=== PATIENT | female | born 2000 | race Caucasian/White ===

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

== ENCOUNTER 2021-02-04 02:50 | Emergency (ER) | payer SELFPAY ==
[2021-02-04 02:50] VITALS: BP 115/65; PULSE 101; RESP 18; TEMP 36.7; O2SAT 99; BMI 21.4
--- NOTE | 2021-02-04 03:23 | EDS_ITS ---
HPI HPI - GI History of Present Illness Chief Complaint: Abd Pain Detail of Chief Complaint: Abdominal pain for 3 days Informant: patient Abdominal Pain/Flank Pain Current Severity: 6/10 Nausea/Vomiting/Emesis GI Symptom: Positive for Nausea Associated Symptoms Associated Symptoms: Negative for Dysuria LMP: 1 month ago Narrative Narrative: Patient presents with abdominal pain for the last 3 days. Patient states that the pain is been continuous. Today she was at work and felt somewhat lightheaded and became concerned and comes to the emergency department for evaluation. Patient states that about a week ago she took a home test and was positive. Patient denies vaginal bleeding. She denies dysuria. She denies fever. She denies blood in her stool or black tarry stools. [facility] Medical History (Updated 02/04/21 @ 05:[address] Madyson Deluca, ) Anxiety Home Medications vit,[id number] [Prenatabs FA] 1 tab PO DAILY 06/15/17 [History Last Taken 11/02/17 22:00 1 tab] Allergy/AdvReac Type Severity Reaction Status Date / Time cephalexin [From Keflex] Allergy Rash Verified 01/31/18 16:41 sulfamethoxazole Allergy Rash Verified 01/31/18 16:41 [From Bactrim] trimethoprim [From Bactrim] Allergy Rash Verified 01/31/18 16:41 Social History Smoking Status: Never smoker ROS [facility] ED Constitutional Constitutional ED: Reports systems reviewed and no addt'l complaints, except as documented; Denies body ache(s), change in weight or chills Eyes Eyes: Denies acute decrease in peripheral vision, change in vision, double vision or loss of vision ENT ENT ED: Reports none; Denies ear pain, lip swelling, loss taste/smell, neck pain, otalgia or sore throat Cardiovascular Cardiovascular: Reports none; Denies abdominal pain, chest pain with activity, leg edema, lightheadedness, palpitations, rapid heart rate or syncope Respiratory/Chest Respiratory/Chest: Reports none; Denies change in mental status, dry cough, dyspnea, hemoptysis, shortness of breath at rest or shortness of breath with exertion Gastrointestinal Gastrointestinal: Reports none, abdominal pain and nausea; Denies change in stool character, diarrhea, hematemesis, hematochezia, melena, rectal bleeding or vomiting Genitourinary Genitourinary ED: Reports none; Denies abdominal discomfort, anuria, dysuria, genital pain, hematuria or polyuria Musculoskeletal Musculoskeletal: Reports none; Denies arthralgias, back pain, difficulty walking, extremity pain, muscle weakness or myalgias Integumentary Reports none; Denies abscess or rash Neurologic Neurologic: Reports none; Denies abnormal gait, confusion, focal weakness, frequent falls, headache(s), loss of vision, numbness, paresthesias, radicular pain, vertigo or weakness Psychiatric Psychiatric: Reports systems reviewed and no addt'l complaints, except as documented and none; Denies behavioral changes, confusion, difficulty benigno ntrating, hallucinations, suicidal ideation, tactile hallucinations or visual hallucinations Endocrine Endocrinology: Denies none, cold intolerance, excessive sweating, fatigue or heat intolerance Hematologic/Lymphatic Hematologic/Lymphatic: Reports none; Denies anemia, easy bleeding or easy bruising Allergic/Immunologic Allergic/Immunologic ED: Denies as per HPI, none, lip swelling, mouth swelling, throat swelling, tongue swelling or hives EXAM Physical Exam Const Vital Signs: 02/04/21 02:50 Temperature 98.1 F Temperature Source Oral Pulse Rate 101 H Respiratory Rate 18 Blood Pressure 115/65 Blood Pressure Mean 81 Pulse Ox 99 Oxygen Delivery Method Room Air Positive well nourished and well developed General Appearance ED: well developed and NAD HEENT Reports TM's clear and moist mucous membranes normocephalic and atraumatic; Negative for trauma or tenderness Tympanic Membrane ED: Yes TM's clear Eyes PERRL and EOMs intact bilaterally General Eye ED: Negative for pale conjunctiva or scleral icterus Neck no lymphadenopathy, supple and no JVD General: Negative for tenderness Chest Wall inspection of chest normal and palpation of chest normal Chest: Negative for tenderness Resp normal respiratory effort and clear to auscultation bilaterally Effort and Inspection: Negative for respiratory distress or pain with movement Auscultation: Negative for rhonchi, wheezes or diminished lung sounds Cardio regular rate, regular rhythm, S1 normal heart sound, S2 normal heart sound and no murmurs Peripheral Pulses: pulses 2+ throughout GI normal to inspection, nondistended, normoactive bowel sounds, soft to palpation, non-distended and no masses; Negative for non-tender Palpation: tender LLQ, RLQ and suprapubic Back/Spine no CVA tenderness and no thoracic nor lumbar tenderness Extremity normal to inspection General Extremety ED: Negative for edema General Extremity: Negative for edema Neuro oriented x3, CN's II-XII intact bilaterally, no sensory deficits noted and gait normal Sensorium / Orientation: awake, alert, oriented to person, oriented to place and oriented to time Motor Exam: strength 5/5 throughout and strength abnormal Psych mental status grossly normal Skin no rashes or lesions noted and no wounds MDM MDM MDM Narrative Medical decision making narrative: Patient is not and has a normal work-up in the emergency department. At this point etiology of her pain is unclear. Patient advised use ibuprofen or Tylenol for discomfort. She will be given referral to primary care physician for follow-up in 3 to 5 days. She is advised to return if worsening pain, fever, vomiting, or condition should worsen anyway. Lab Data Attestation: I reviewed the patient's lab results. Labs: Laboratory Results - last 24 hr 02/04/21 02/04/21 02/04/21 03:00 03:00 03:00 WBC 5.6 RBC 4.61 Hgb 12.3 Hct 38.5 MCV 83.5 MCH 26.7 L MCHC 31.9 L RDW Std Deviation 38.1 RDW Coeff of Chuy 12.6 Plt Count 285 MPV 9.1 Immature Gran % (Auto) 0.200 Neut % (Auto) 49.6 Lymph % (Auto) 32.7 [place] % (Auto) 14.3 H Eos % (Auto) 2.7 Baso % (Auto) 0.5 Absolute Neuts (auto) 2.8 Absolute Lymphs (auto) 1.83 Nucleated RBC % 0 Sodium 141 Potassium 3.6 Chloride 107 Carbon Dioxide 28.0 Anion Gap 6 BUN 13 Creatinine 0.71 Estim Creat Clear Calc 90.03 Est GFR (MDRD) Af Amer 133 Est GFR (MDRD) Non-Af 110 BUN/Creatinine Ratio 18.3 Glucose 93 Calcium 8.5 Total Bilirubin 0.30 AST 18 ALT 19 Alkaline Phosphatase 74 Total Protein 7.1 Albumin 4.1 Globulin 3.0 Albumin/Globulin Ratio 1.4 Serum , Qual NEGATIVE Urine Color Urine Clarity Urine pH Ur Specific [place] Urine Protein Urine Glucose (UA) Urine Ketones Urine Occult Blood Urine Nitrite Urine Bilirubin Urine Urobilinogen Ur Leukocyte Esterase Urine RBC Urine WBC Ur Squamous Epith Cells Urine Bacteria Urine Mucus 05/25/21 04:50 WBC RBC Hgb Hct MCV MCH MCHC RDW Std Deviation RDW Coeff of [place] Plt Count MPV Immature Gran % (Auto) Neut % (Auto) Lymph % (Auto) [place] % (Auto) Eos % (Auto) Baso % (Auto) Absolute Neuts (auto) Absolute Lymphs (auto) Nucleated RBC % Sodium Potassium Chloride Carbon Dioxide Anion Gap BUN Creatinine Estim Creat Clear Calc Est GFR (MDRD) Af Amer Est GFR (MDRD) Non-Af BUN/Creatinine Ratio Glucose Calcium Total Bilirubin AST ALT Alkaline Phosphatase Total Protein Albumin Globulin Albumin/Globulin Ratio Serum , Qual Urine Color Yellow Urine Clarity Clear Urine pH 7.0 Ur Specific [place] 1.005 Urine Protein Negative Urine Glucose (UA) Normal Urine Ketones Negative Urine Occult Blood Negative Urine Nitrite Negative Urine Bilirubin Negative Urine Urobilinogen Normal Ur Leukocyte Esterase Negative Urine RBC 0 SEEN Urine WBC 0 SEEN Ur Squamous Epith Cells 0 SEEN Urine Bacteria 0 SEEN Urine Mucus 0 SEEN Discharge Plan Triage Chief Complaint: Abd Pain ED Provider: Madyson Deluca Dx/Rx/DC Orders Clinical Impression: Abdominal pain Instructions: ED Abdominal Pain Unkn Cause Fem Prescriptions: No Action Prenatabs FA 1 TABLET tablet 1 tab PO DAILY RF: 0 Primary Care Provider: Care Physician,No Primary Referrals: Kathy Cole MD [STAFF PHYSICIAN] - 3-5 Days Care Physician,No Primary [Primary Care Provider] - Disposition Disposition: Home, self care
[2021-02-04 03:29] LABS: Absolute Lymphocyte Count 1.83 X10^3/uL (0.83-4.51); Absolute Neutrophil Count 2.8 X10^3/uL (2.0-7.7); Basophil# 0.03 X10^3/uL; Basophil% 0.5 % (0-1); Eosinophil# 0.15 X10^3/uL; Eosinophils% 2.7 % (0-5); Hematocrit 38.5 % (37-47); Hemoglobin 12.3 g/dL (12.0-15.0); Lymphocyte # 1.83 X10^3/ul (0.83-4.51); Lymphocyte % 32.7 % (19-41); Mean Corp Hgb Conc 31.9 g/dL (32-36); Mean Corpuscular Hgb 26.7 pg (27.0-32.0); Mean Corpuscular Volume 83.5 fL (81-99); Mean Platelet Vol. 9.1 fl (6.2-12.0); Monocyte% 14.3 % (0-10); NRBC Flagged by Analyzer 0 % (0-5); Neutrophil # 2.77 X10^3/uL (2.7-7.7); Neutrophil % 49.6 % (47-70); Platelet Count 285 K/mm3 (150-450); RBC Distribution Width CV 12.6 % (11.6-14.6); RBC Distribution Width SD 38.1 fl (35.1-43.9); Red Blood Count 4.61 M/mm3 (4.2-5.4); White Blood Count 5.6 K/mm3 (4.4-11.0)
[2021-02-04 03:37] LABS: Internal QC Validated? YES +Cl - CLEAR BKGD; Pregnancy, Serum, hCG Quali. NEGATIVE Negative
[2021-02-04 03:47] LABS: ALB/GLOB Ratio 1.4 RATIO (0.9-2.4); AST(SGOT) 18 U/L (15-37); Alanine Aminotransfer ALT/SGPT 19 U/L (13-56); Albumin, Serum 4.1 g/dL (3.2-5.0); Alkaline Phosphatase 74 U/L (45-117); Anion Gap 6 (5-15); BUN 13 mg/dL (7-18); BUN/Creat Ratio 18.3 RATIO (10-20); Calcium,Total 8.5 mg/dL (8.5-10.1); Chloride 107 mmol/L (98-107); Creatinine, Serum 0.71 mg/dL (0.55-1.02); EST Glomerular Filtration Rate 110 mL/min (>60); Est Glom Filt Rate - Afr Amer 133 mL/min (>60); Estimated Creatinine Clearance 90.03 ml/min; Glucose 93 mg/dL (74-106); Potassium 3.6 mmol/L (3.5-5.1); Protein, Total 7.1 g/dL (6.4-8.2); Sodium Level 141 mmol/L (136-145)
--- NOTE | 2021-02-04 04:11 | CT_ITS ---
STUDY: CT ABDOMEN AND PELVIS WITHOUT CONTRAST REASON FOR EXAM: Female, 20 years old. abdominal pain-lt side with nausea RADIATION DOSAGE (If Supplied By Facility): CTDIvol = ( 6.04 ) mGy, DLP = ( 277.84 ) mGycm TECHNIQUE: Transaxial images were obtained from the dome of the diaphragm to the symphysis pubis without oral contrast, and without intravenous contrast. Sagittal and coronal images were reconstructed. Individualized dose optimization techniques were used for this CT. COMPARISON: None. FINDINGS: The visualized lung bases are unremarkable. The visualized portions of the heart are within normal limits. Normal liver. Normal gallbladder and extrahepatic biliary system. Normal spleen. Normal pancreas. Normal bilateral adrenal glands. Normal right kidney. Normal left kidney. Normal visualized stomach. Normal small intestine. Normal colon. Significant diffuse constipation. The appendix is visualized and appears normal. Normal abdominal aorta. Normal inferior vena cava. Normal retroperitoneum. Normal urinary bladder. Unremarkable uterus Normal abdominal wall. Normal osseous structures. CT/Abdomen/Pelvis without Cont IMPRESSION: Moderate constipation with unremarkable appendix Electronically Signed: Keith Bowser DO at 4:52 EDT Tel , Service support ,
[2021-02-04 04:54] LABS: Bacteria 0 SEEN /hpf (None Seen); Color, Urine Yellow (Yellow); Glucose, Dipstick Normal (Normal); Ketone-Dipstick Negative (Negative); Leukocyte Esterase-Dipstick Negative /ul (Negative); Mucous, Urine 0 SEEN /hpf (<or=2+); Nitrite-Dipstick Negative (Negative); Occult Blood-Urine Negative /ul (Negative); Protein-Dipstick Negative (Negative); Red Blood Cells-Urine 0 SEEN /hpf (0-5); Specific Gravity, Urine 1.005 (1.002-1.030); Squamous Epithelial Cells - UA 0 SEEN /hpf (5-10); Urine Bilirubin Dipstick Negative (Negative); Urine Clarity Clear (Clear); Urine Urobilinogen Normal (Normal); White Blood Cells 0 SEEN /hpf (0-5)
[2021-02-04 05:40] VITALS: BP 99/67; PULSE 76; RESP 16; O2SAT 100
== END 2021-02-04 05:40 | disposition home or self-care (01) ==
PROVIDERS: Emergency Provider Emergency Medicine
DX: R10.9 Unspecified abdominal pain (principal); R11.0 Nausea; R42 Dizziness and giddiness
CPT/HCPCS: 74176; 80053; 81001; 84703; 85025; 99283

== ENCOUNTER → 2021-04-09 | Outpatient (CLI) | payer OTHER, SELFPAY ==
[2021-04-12 03:07] LABS: Chlamydia By Nucleic Acid AMP Negative (Negative)
[2021-04-12 13:05] LABS: Gonococcus By Nucleic Acid AMP Negative (Negative)
[2021-04-15 13:43] LABS: HPV APTIMA, High Risk Positive (Negative)
[2021-04-15 13:45] LABS: HPV Reflexed? YES, CHARGE PATIENT
== END | disposition home or self-care (01) ==
LOC: LABSPEC 12:17
PROVIDERS: Visit Provider Obstetrics & Gynecology
DX: Z12.4 Encounter for screening for malignant neoplasm of cervix (principal); Z11.3 Encounter for screening for infections with a predominantly sexual mode of transmission
CPT/HCPCS: 87491; 87591; 87624; 88175; G0145

== ENCOUNTER → 2021-05-06 16:22 | Outpatient (CLI) | payer OTHER, SELFPAY ==
[2021-05-06 17:26] LABS: Absolute Lymphocyte Count 1.07 X10^3/uL (0.83-4.51); Absolute Neutrophil Count 5.4 X10^3/uL (2.0-7.7); Basophil# 0.02 X10^3/uL; Basophil% 0.3 % (0-1); Eosinophils% 1.4 % (0-5); Hematocrit 38.7 % (37-47); Hemoglobin 12.5 g/dL (12.0-15.0); Lymphocyte # 1.07 X10^3/ul (0.83-4.51); Mean Corp Hgb Conc 32.3 g/dL (32-36); Mean Corpuscular Hgb 26.9 pg (27.0-32.0); Mean Corpuscular Volume 83.4 fL (81-99); Mean Platelet Vol. 8.9 fl (6.2-12.0); Monocyte# 0.55 X10^3/uL; Monocyte% 7.7 % (0-10); NRBC Flagged by Analyzer 0 % (0-5); Neutrophil # 5.37 X10^3/uL (2.7-7.7); Neutrophil % 75.3 % (47-70); Platelet Count 260 K/mm3 (150-450); RBC Distribution Width CV 13.4 % (11.6-14.6); RBC Distribution Width SD 41.1 fl (35.1-43.9); Red Blood Count 4.64 M/mm3 (4.2-5.4); White Blood Count 7.1 K/mm3 (4.4-11.0)
[2021-05-07 10:07] LABS: HIV - WCH Non-Reactive (Nonreactive); Hepatitis B Surface Antigen Non-Reactive (Nonreactive); Hepatitis C Antibody Non-Reactive (Nonreactive); Rubella IgG Reactive (Nonreactive); Syphilis Antibodies Non-reactive
== END ==
LOC: WOBLAB 16:23
PROVIDERS: Visit Provider Obstetrics & Gynecology
DX: Z34.81 Encounter for supervision of other normal pregnancy, first trimester (principal)
CPT/HCPCS: 36415; 85025; 86703; 86762; 86780; 86803; 87086; 87088; 87340

== ENCOUNTER 2021-07-30 14:32 | Observation (INO) | payer OTHER, SELFPAY ==
[2021-07-30 14:33] VITALS: BP 112/65; PULSE 107; RESP 18; TEMP 37.2; O2SAT 97; BMI 21.4
[2021-07-30 15:39] LABS: Absolute Lymphocyte Count 0.55 X10^3/uL (0.83-4.51); Absolute Neutrophil Count 5.1 X10^3/uL (2.0-7.7); Basophil# 0.02 X10^3/uL; Basophil% 0.3 % (0-1); Eosinophil# 0.15 X10^3/uL; Eosinophils% 2.4 % (0-5); Hematocrit 38.5 % (37-47); Hemoglobin 12.5 g/dL (12.0-15.0); Lymphocyte # 0.55 X10^3/ul (0.83-4.51); Lymphocyte % 8.8 % (19-41); Mean Corp Hgb Conc 32.5 g/dL (32-36); Mean Corpuscular Hgb 27.2 pg (27.0-32.0); Mean Corpuscular Volume 83.9 fL (81-99); Mean Platelet Vol. 8.9 fl (6.2-12.0); Monocyte# 0.41 X10^3/uL; Monocyte% 6.5 % (0-10); NRBC Flagged by Analyzer 0 % (0-5); Neutrophil # 5.14 X10^3/uL (2.7-7.7); Neutrophil % 81.8 % (47-70); POSITIVE DIFFERENTIAL YES; Platelet Count 244 K/mm3 (150-450); RBC Distribution Width CV 13.2 % (11.6-14.6); RBC Distribution Width SD 40.5 fl (35.1-43.9); Red Blood Count 4.59 M/mm3 (4.2-5.4); White Blood Count 6.3 K/mm3 (4.4-11.0)
[2021-07-30 15:56] LABS: BUN 7 mg/dL (7-18); Estimated Creatinine Clearance 91.32 ml/min; Glucose 98 mg/dL (74-106)
[2021-07-30 15:57] LABS: Anion Gap 2 (5-15); Calcium,Total 8.8 mg/dL (8.5-10.1); Chloride 110 mmol/L (98-107); EST Glomerular Filtration Rate 112 mL/min (>60); Est Glom Filt Rate - Afr Amer 135 mL/min (>60); Potassium 3.9 mmol/L (3.5-5.1); Sodium Level 139 mmol/L (136-145)
[2021-07-30 16:01] LABS: Differential Indicated SCAN CRITERIA MET
--- NOTE | 2021-07-30 17:08 | US_ITS ---
STUDY: ULTRASOUND TRANSVAGINAL CLINICAL: Female, 20 years old.. Pelvic pain. History of an 4 weeks ago. Fever. TECHNIQUE: Transvaginal COMPARISON: CT of the abdomen and pelvis, 02/05/2021 FINDINGS: The anteverted uterus measures 10.6 x 5.9 x 4.4 cm. There are no myometrial masses. Endometrium measures 8 mm in thickness and is hyperechoic. There is minimal fluid within the endometrial canal. The small focal calcification in the lower uterine segment. There are no endometrial masses, and there is no fluid in the endometrial cavity. Normal uterine cervix. Normal right ovary, measuring 4.3 x 2.5 x 1.9 cm. There are multiple follicles without a dominant cyst. Normal left ovary, measuring 3.5 x 2.5 x 2.2 cm. There are multiple follicles without a dominant cyst. The large tortuous vessel in the left adnexa. There is no free fluid in the pelvis. Polycystic ovary disease: No. US/Transvaginal Non- IMPRESSION: 1. Prominent vasculature in the left broad ligament. Question pelvic congestion. 2. Minimal fluid in the endometrial canal without other evidence of uterine abnormality. 3. Normal ovaries. Electronically Signed: Krystian Rowe DO at 18:32 EST Tel [phone], Service support ,
--- NOTE | 2021-07-30 17:09 | EX.ED.DYSGE1 ---
HPI History of Present Illness Chief Complaint: Abd Pain Informant: patient Onset/Context/Timing Onset: Weeks Context: Gradual Onset Current Severity: Moderate Maximum Severity: Moderate Narrative Narrative: Patient present secondary abdominal pain and cramping for the last 1 to 2 weeks. 4 weeks ago she had a procedure done in [place]. Patient states she initially has had some bleeding but over the past 2 weeks feels like she is passing blood, tissue, and material looks like brown urine. Today she had a temperature to 101.4. She is G2, P1, Ab1. PFSH [facility] Medical History Anxiety Home Medications vit,[id number] [Prenatabs FA] 1 tab PO DAILY 06/15/17 [History Last Taken 11/02/17 22:00 1 tab] Allergy/AdvReac Type Severity Reaction Status Date / Time cephalexin [From Keflex] Allergy Rash Verified 07/30/21 14:34 sulfamethoxazole Allergy Rash Verified 07/30/21 14:34 [From Bactrim] trimethoprim [From Bactrim] Allergy Rash Verified 07/30/21 14:34 Surgical History no surgical history Social History Smoking Status: Never smoker ROS ROS ED Constitutional Constitutional ED: Reports fever(s); Denies chills Eyes Eyes: Denies change in vision ENT ENT ED: Denies sore throat Cardiovascular Cardiovascular: Denies chest pain Respiratory/Chest Respiratory/Chest: Denies cough or dyspnea Gastrointestinal Gastrointestinal: Reports abdominal pain; Denies diarrhea, nausea or vomiting Genitourinary Genitourinary ED: Denies dysuria Musculoskeletal Musculoskeletal: Denies back pain Integumentary Denies rash Neurologic Neurologic: Denies headache(s) or weakness Allergic/Immunologic Allergic/Immunologic ED: Denies urticaria EXAM Physical Exam Const Vital Signs: 07/30/21 14:33 Temperature 98.9 F Temperature Source Temporal Pulse Rate 107 H Respiratory Rate 18 Blood Pressure 112/65 Blood Pressure Mean 80 Pulse Ox 97 Oxygen Delivery Method Room Air Positive well nourished and well developed General Appearance ED: well developed HEENT Reports normocephalic and head/scalp atraumatic Eyes PERRL and EOMs intact bilaterally Neck supple Chest Wall inspection of chest normal and palpation of chest normal Resp normal respiratory effort and clear to auscultation bilaterally Cardio regular rate and regular rhythm GI Auscultation: hypoactive bowel sounds Palpation: soft and tender suprapubic; Negative for guarding or rebound tenderness present Extremity normal to inspection Neuro oriented x3 and no sensory deficits noted Sensorium / Orientation: alert Motor Exam: strength 5/5 throughout Psych mental status grossly normal Skin no rashes or lesions noted MDM MDM Lab Data Labs: Laboratory Results - last 24 hr 07/30/21 07/30/21 15:30 15:30 WBC 6.3 RBC 4.59 Hgb 12.5 Hct 38.5 MCV 83.9 MCH 27.2 MCHC 32.5 RDW Std Deviation 40.5 RDW Coeff of [place] 13.2 Plt Count 244 MPV 8.9 Immature Gran % (Auto) 0.200 Neut % (Auto) 81.8 H Lymph % (Auto) 8.8 L [place] % (Auto) 6.5 Eos % (Auto) 2.4 Baso % (Auto) 0.3 Absolute Neuts (auto) 5.1 Absolute Lymphs (auto) 0.55 L Nucleated RBC % 0 Sodium 139 Potassium 3.9 Chloride 110 H Carbon Dioxide 27.0 Anion Gap 2 L BUN 7 Creatinine 0.70 Estim Creat Clear Calc 91.32 Est GFR (MDRD) Af Amer 135 Est GFR (MDRD) Non-Af 112 BUN/Creatinine Ratio 10.0 Glucose 98 Calcium 8.8 Discharge Plan Triage Chief Complaint: Abd Pain ED Provider: Bridgette Pearce Dx/Rx/DC Orders Prescriptions: No Action Prenatabs FA 1 TABLET tablet 1 tab PO DAILY RF: 0 Primary Care Provider: Care Physician,No Primary
[2021-07-30 17:11] LABS: Mucous, Urine 0 SEEN /hpf (<or=2+)
[2021-07-30 17:19] LABS: Color, Urine Yellow (Yellow); Glucose, Dipstick Normal (Normal); Ketone-Dipstick 15 mg/dl (Negative); Leukocyte Esterase-Dipstick 500 /ul (Negative); Nitrite-Dipstick Negative (Negative); Occult Blood-Urine 250 /ul (Negative); Protein-Dipstick 15 mg/dl (Negative); Urine Bilirubin Dipstick Negative (Negative); Urine Clarity Cloudy (Clear); Urine Urobilinogen Normal (Normal)
[2021-07-30 17:41] LABS: Squamous Epithelial Cells - UA 5-10 SEEN /hpf (5-10); White Blood Cells 25-50 SEEN /hpf (0-5)
[2021-07-30 17:42] LABS: Bacteria RARE /hpf (None Seen); Red Blood Cells-Urine 0-5 SEEN /hpf (0-5)
[2021-07-30] MEDS: Ketorolac 15 MG/ML Vial IV (17:42)
[2021-07-30 18:14] LABS: hCG Titer Quant., Serum 4 mIU/mL (1-3)
--- NOTE | 2021-07-30 20:33 | HP.PCM.OB_ITS ---
History and Physical Date of Admission: 07/30/21 HPI: 20-year-old presenting to emergency room with fever and lower abdominal pain. Patient reports that she had an elective termination via dilation and curettage 4 weeks ago. She had normal postoperative recovery, however this week she reported some brown watery discharge. Today around noon she had a fever of 101 ?F. This resolved with Motrin. Reports lower abdominal discomfort. No urinary symptoms, no diarrhea or constipation, no rash, no headache, no vision changes, no chest pain or shortness of breath. Denies vaginal bleeding. [employer] history: Patient of [place] [employer] G1: Term in 2017 G2: EAB via D and C Medical history: 1. Covid fall 2020. Residual anosmia. Surgical history: 1. Tonsillectomy and adenoidectomy 2. Surgical Medications: None Allergies: Bactrim and Keflex causes rash, no angioedema Family history: Denies history of blood clots or bleeding disorders Social history: Former smoker. Denies alcohol or drug use Review of systems: Negative otherwise documented as above Physical exam: Vitals Blood pressure 94/60 pulse 74 respiratory rate 18 temperature 97.2 ?F oxygen saturation 97% on room air General: Patient is in no acute distress comfortable in bed HEENT: Normocephalic/atraumatic, pupils equally round and reactive to light and accommodation Cardiorespiratory: No increased effort, regular heart rate Abdomen: Soft, nondistended. Mildly tender suprapubic region. No rebound or guarding : Per ER physician minimal discharge on speculum exam. Bimanual exam done by myself noting abdominal suprapubic tenderness, no cervical tenderness. Minimal light brown discharge on glove Extremities: No edema Neurologic: Cranial nerves II through XII grossly intact Musculoskeletal: Full range of movement all extremities, 5 out of 5 strength Laboratory: WBC 6.3, hemoglobin/hematocrit 12.5/38.5, platelets 244. Neutrophils elevated CMP within normal limits Quantitative hCG 4 which is normal Transvaginal ultrasound: Uterus measuring normal size. No myometrial masses. Endometrial thickness 8 mm, with minimal fluid in endometrial canal. No masses or fluid in endometrial cavity. Normal cervix. Normal-appearing ovaries. Enlarged tortuous vessel left adnexa Assessment/Plan: 20-year-old female status post surgical admitted with working diagnosis of endometritis. 1. Post endometritis -Diagnosis based on fever and suprapubic lower abdominal tenderness in the setting of recent surgical . -Will admit for IV antibiotic therapy. No need for surgical D&C at this time clinically. Patient has minimal bleeding and discharge. She is currently afebrile. No leukocytosis. Endometrial stripe 8 mm, with no noted blood flow to the endometrial cavity or retained tissue. Additionally hCG level was 4 which is within normal limits. Will start IV antibiotics at this time and monitor overnight. If patient becomes febrile despite antibiotics or pain is not improved we will consider surgery tomorrow. Had long discussion with patient about findings, diagnosis, plan. All of her questions were answered. -Clindamycin 900 mg q8h and gentamicin 5 mg/kg qD -CBC in the morning Diet: Regular IV fluids: LR 100 cc/h DVT prophylaxis: Ambulation, SCDs while in bed Dispo: IV antibiotics
[2021-07-30 20:39] VITALS: RESP 18
[2021-07-30 20:59] VITALS: BP 94/60; PULSE 74; RESP 18; TEMP 36.2; O2SAT 97
[2021-07-30 21:30] VITALS: BMI 22.7
[2021-07-30 21:46] VITALS: BP 99/51; PULSE 77; RESP 18; TEMP 36.6; O2SAT 99
[2021-07-30] MEDS: Lactated Ringers 1,000 ML 100 ML IV (22:08)
[2021-07-31 05:10] VITALS: BP 99/53; PULSE 102; PULSE 104; RESP 16; TEMP 37.3; O2SAT 99
[2021-07-31 06:35] LABS: Absolute Neutrophil Count 4.4 X10^3/uL (2.0-7.7); Basophil# 0.01 X10^3/uL; Basophil% 0.2 % (0-1); Eosinophil# 0.19 X10^3/uL; Eosinophils% 3.1 % (0-5); Hematocrit 38.7 % (37-47); Hemoglobin 12.1 g/dL (12.0-15.0); Lymphocyte % 14.8 % (19-41); Mean Corp Hgb Conc 31.3 g/dL (32-36); Mean Corpuscular Hgb 26.4 pg (27.0-32.0); Mean Corpuscular Volume 84.3 fL (81-99); Mean Platelet Vol. 9.2 fl (6.2-12.0); Monocyte# 0.57 X10^3/uL; Monocyte% 9.4 % (0-10); NRBC Flagged by Analyzer 0 % (0-5); Neutrophil % 72.2 % (47-70); Platelet Count 246 K/mm3 (150-450); RBC Distribution Width CV 13.2 % (11.6-14.6); RBC Distribution Width SD 40.9 fl (35.1-43.9); Red Blood Count 4.59 M/mm3 (4.2-5.4); White Blood Count 6.1 K/mm3 (4.4-11.0)
--- NOTE | 2021-07-31 10:26 | PCM.PN.OB ---
Subjective Subjective Patient feeling unchanged today. Denies any pain or tenderness while lying. Reports some discomfort when standing. Has not used any pain medication overnight. Minimal brown discharge. Objective Data Objective Data Vital Signs: Vital Signs Temp Pulse Resp BP Pulse Ox 99.1 F 104 H 16 99/53 L 99 07/31/21 05:10 07/31/21 05:10 07/31/21 05:10 07/31/21 05:10 07/31/21 05:10 Oxygen Delivery Method Room Air Weight: 52.6 kg Body Mass Index (BMI) 22.7 Intake & Output: Intake and Output for Last 24 Hours 07/29/21 07/30/21 07/31/21 23:59 23:59 23:59 Intake Total 103.5 / 103.5 1126.67 / 1126.67 Balance 103.5 / 103.5 1126.67 / 1126.67 Lab / Micro Data Result Diagrams: 07/31/21 05:54 07/30/21 15:30 Labs: Laboratory Results - last 24 hr 07/30/21 15:30: WBC 6.3, RBC 4.59, Hgb 12.5, Hct 38.5, MCV 83.9, MCH 27.2, MCHC 32.5, RDW Std Deviation 40.5, RDW Coeff of [place]uy 13.2, Plt Count 244, MPV 8.9, Immature Gran % (Auto) 0.200, Neut % (Auto) 81.8 H, Lymph % (Auto) 8.8 L, [place] % (Auto) 6.5, Eos % (Auto) 2.4, Baso % (Auto) 0.3, Absolute Neuts (auto) 5.1, Absolute Lymphs (auto) 0.55 L, Nucleated RBC % 0 07/30/21 15:30: Sodium 139, Potassium 3.9, Chloride 110 H, Carbon Dioxide 27.0, Anion Gap 2 L, BUN 7, Creatinine 0.70, Estim Creat Clear Calc 91.32, Est GFR (MDRD) Af Amer 135, Est GFR (MDRD) Non-Af 112, BUN/Creatinine Ratio 10.0, Glucose 98, Calcium 8.8 07/30/21 17:05: Urine Color Yellow, Urine Clarity Cloudy, Urine pH 7.0, Ur Specific [place] 1.010, Urine Protein 15 H, Urine Glucose (UA) Normal, Urine Ketones 15 H, Urine Occult Blood 250 H, Urine Nitrite Negative, Urine Bilirubin Negative, Urine Urobilinogen Normal, Ur Leukocyte Esterase 500 H, Urine RBC 0-5 SEEN, Urine WBC 25-50 SEEN, Ur Squamous Epith Cells 5-10 SEEN, Urine Bacteria RARE, Urine Mucus 0 SEEN 07/30/21 17:33: HCG, Quant 4 07/31/21 05:54: WBC 6.1, RBC 4.59, Hgb 12.1, Hct 38.7, MCV 84.3, MCH 26.4 L, MCHC 31.3 L, RDW Std Deviation 40.9, RDW Coeff of [place] 13.2, Plt Count 246, MPV 9.2, Immature Gran % (Auto) 0.300, Neut % (Auto) 72.2 H, Lymph % (Auto) 14.8 L, [place] % (Auto) 9.4, Eos % (Auto) 3.1, Baso % (Auto) 0.2, Absolute Neuts (auto) 4.4, Absolute Lymphs (auto) 0.90, Nucleated RBC % 0 Radiography Diagnostic Testing: Radiology Impression Transvaginal US 07/30/21 17:08 IMPRESSION: 1. Prominent vasculature in the left broad ligament. Question pelvic congestion. 2. Minimal fluid in the endometrial canal without other evidence of uterine abnormality. 3. Normal ovaries. Electronically Signed: Krystian Rowe DO at 18:32 EST Tel [phone], Service support , Physical Exam Const alert, oriented x3 and no apparent distress HEENT normocephalic Head and Scalp: atraumatic Cardio regular rate GI normal to inspection, nondistended, normoactive bowel sounds GI Narrative: Very mild tenderness suprapubic and deep palpation. No rebound or guarding. Extremity normal to inspection and no pedal edema Psych mental status grossly normal and affect normal Assessment & Plan (1) Acute endometritis: PLAN: Endometritis status post surgical . Patient continues to be afebrile. No leukocytosis. Patient not requiring any pain medication. She does continue to have some brown discharge, some leaking tenderness when standing but not in other positions. No bleeding. -We will continue to monitor at this time. -Continue gentamicin and clindamycin -Will reevaluate this afternoon. At this time we will continue antibiotic therapy no current indications for surgical management. -Okay for clear diet. (2) Post- complication:
[2021-07-31 10:37] VITALS: BP 91/55; PULSE 79; RESP 16; TEMP 36.8; O2SAT 100
--- NOTE | 2021-07-31 10:38 | NURSING ---
dr duckworth in to see pt. ok for clear liquids x1 then npo rest of day and will recheck back in to see how pt is doing later this evening to see if needs to go to or still.
[2021-07-31] MEDS: Lactated Ringers 1,000 ML 100 ML IV ×2 (12:23→23:56)
[2021-07-31 14:53] LABS: Pathologist Review Reviewed
[2021-07-31 14:58] VITALS: BP 90/42; PULSE 80; RESP 18; TEMP 36.6; O2SAT 99
--- NOTE | 2021-07-31 15:04 | PCS.PANDOC ---
PANDEMIC DOCUMENTATION INITIATED: Date: 04/28/2021 Time: 190
[2021-07-31 20:52] LABS: Gentamicin, Random 1.5 ug/mL
[2021-07-31 20:58] VITALS: BP 90/51; PULSE 90; RESP 16; TEMP 36.8; O2SAT 99
[2021-08-01 00:04] VITALS: BP 84/48; PULSE 75; RESP 16; TEMP 36.9; O2SAT 99
[2021-08-01 04:06] VITALS: BP 93/70; PULSE 70; RESP 16; TEMP 37.1; O2SAT 100
--- NOTE | 2021-08-01 08:31 | PCM.PN.OB ---
Subjective Subjective Patient without complaints. Indicates her pain is markedly better and nearly gone. No fevers. Will discontinue IV antibiotics and start oral antibiotics. Will release to home today. To follow-up in the office in 2 weeks or if she has increasing pain or fevers to call sooner. Objective Data Objective Data Vital Signs: Vital Signs Temp Pulse Resp BP Pulse Ox 98.7 F 70 16 93/70 100 08/01/21 04:06 08/01/21 04:06 08/01/21 04:06 08/01/21 04:06 08/01/21 04:06 Oxygen Delivery Method Room Air Weight: 115 lb 15.41 oz Body Mass Index (BMI) 22.7 Intake & Output: Intake and Output for Last 24 Hours 07/30/21 07/31/21 08/01/21 23:59 23:59 23:59 Intake Total 103.5 / 103.5 3420.42 / 3420.42 706 / 706 Balance 103.5 / 103.5 3420.42 / 3420.42 706 / 706 Lab / Micro Data Result Diagrams: 07/31/21 05:54 07/30/21 15:30 Labs: Laboratory Results - last 24 hr 07/30/21 15:30: Diff Path Review Reviewed 07/31/21 20:00: Random Gentamicin 1.5
--- NOTE | 2021-08-01 08:33 | PCM.DC ---
Discharge Instructions Diet Discharge Diet: No restrictions Activity Discharge Activity: Return to Normal Activity, May Shower and May Take a Tub Bath May resume sexual activity in: 10-14 days Dressing / Incision Call your doctor if you observe: Fever of 101 or Higher, Using more than 1 pad per hour and - (Increasing pain) Follow Up Care Please Follow Up With: Lilly Tolbert DO When: 2 weeks Test Results: Test results from this visit will be discussed in further detail at your follow-up appointment, if applicable. Discharge Plan Admission Admit Date/Time: 07/30/21 21:19 Primary Reason for Your Visit: Endometritis Attending Provider: Lilly Tolbert Primary Care Provider: Care Physician,Iza Primary Discharge Orders/Prescriptions Prescriptions: New doxycycline monohydrate 100 mg capsule 100 mg PO BID Qty: 20 RF: 0 No Action NK RF: 0 Referrals / Follow Up: Care Physician,No Primary [Primary Care Provider] - Disposition Disposition (needs filled in before D/C Order can be placed): Home, Self Care
[2021-08-01 09:01] VITALS: BP 97/58; PULSE 66; RESP 16; TEMP 36.7; O2SAT 100
== END 2021-08-01 09:20 | disposition home or self-care (01) ==
LOC: ED 17:04 → MS3 07-31 08:28
PROVIDERS: Admitting Provider Student in an Organized Health Care Education/Training Program; Emergency Provider Emergency Medicine; Visit Provider Student in an Organized Health Care Education/Training Program
DX: O04.5 Genital tract and pelvic infection following (induced) termination of pregnancy (principal); Z86.16 Personal history of COVID-19; J39.8 Other specified diseases of upper respiratory tract; Z87.891 Personal history of nicotine dependence
CPT/HCPCS: 36415; 76830; 80048; 80170; 81001; 84702; 85025; 96361; 96365; 96366; 96367; 96375; 99218; 99284; J7120; A4216; G0378